=== PATIENT | male | born 1965 | race Caucasian/White ===

== ENCOUNTER → 2018-04-04 | Outpatient (CLI) | payer OTHER ==
[~2018-04-04] MED LIST: ACYCLOVIR 400400 MG PO; HYDROCODONE-AP1 EAC6 PO; LISINOPRIL10 MG PO; MIRALAX17 GM PO
== END ==
LOC: CAT 08:56
DX: Z13.6 Encounter for screening for cardiovascular disorders (principal); E78.00 Pure hypercholesterolemia, unspecified